=== PATIENT | female | born 1960 | race Caucasian/White ===

== ENCOUNTER 2017-11-17 16:44 | Emergency (ER) | payer MEDICAID ==
[~2017-11-17] VITALS: Ht 175.3 cm; Wt 72.0 kg
[2017-11-17] MEDS ORDERED: VICODIN1 TA1 PO (18:54)
[2017-11-17 19:10] VITALS: BP 156/77
== END 2017-11-17 19:10 | disposition home or self-care (01) | DRG 563 ==
LOC: ED 16:44
PROC: 2W3RX1Z Immobilization of Left Lower Leg using Splint (ICD-10-PCS; principal; 2017-11-17)
DX: S82.832A Other fracture of upper and lower end of left fibula, initial encounter for closed fracture (principal); X50.1XXA Overexertion from prolonged static or awkward postures, initial encounter